=== PATIENT | female | born 1970 ===

== ENCOUNTER 2021-08-23 06:28 | Day surgery (SDC) | payer SELFPAY ==
[~2021-08-23] VITALS: Ht 152.4 cm; Wt 79.1 kg
[2021-08-23] MEDS ORDERED: PRILOTC PO (06:41)
[2021-08-23] MEDS ORDERED: LIPITOR 40MG TA40 MG PO (06:41)
[2021-08-23 06:57] VITALS: BP 115/81; PULSE 71; TEMP 98.1
--- NOTE | 2021-08-23 07:11 | NUR ---
Patient is turkmen speaking and reads and writes in turkmen. Darshana used. First interperator used was Jose, ID [id number]. Used for health history and med rec. 2nd interperator was Martha, ID [id number]. Used while starting IV and doing consent.
--- NOTE | 2021-08-23 08:20 | NUR ---
Interperator serviced used prior to procedure to talk to Dr. Johns and SÁNCHEZ De Leon. Interperator SÁNCHEZ Gracia ID: [id number].
[2021-08-23 08:40] VITALS: BP 117/73; PULSE 81; TEMP 97.5
--- NOTE | 2021-08-23 08:40 | NUR ---
PATIENT RETURNED TO ROOM 3 VIA CART. VITAL SIGNS WNL. SHE DENIES ANY PAIN OR NAUSEA. AND SON AT BEDSIDE. SHE REQUESTS ORANGE JUICE AND JELLO. WILL CONTINUE TO MONITOR.
[2021-08-23 08:55] VITALS: BP 112/72; PULSE 74
--- NOTE | 2021-08-23 08:55 | NUR ---
PATIENT IS AWAKE AND ALERT. SHE TOLERATED JELLO AND JUICE WELL. AND SON AT BEDSIDE. DOCTOR IN WITH PATIENT. WILL CONTINUE TO MONITOR.
[2021-08-23 09:05] VITALS: BP 107/62; PULSE 72
--- NOTE | 2021-08-23 09:05 | NUR ---
PATIENT IS READY FOR DISCHARGE. IV REMOVED. VITAL SIGNS WNL. DOCTOR JUST TALKED WITH PATIENT AND FAMILY. WILL DISCHARGE VIA WHEELCHAIR AFTER SHE GETS DRESSED. DISCHARGE INSTRUCTIONS REVIEWED WITH PATIENT AND FAMILY.
== END 2021-08-23 09:10 ==
LOC: SDCO 06:28
DX: K21.9 Gastro-esophageal reflux disease without esophagitis (principal); K29.50 Unspecified chronic gastritis without bleeding; K29.80 Duodenitis without bleeding; Z12.11 Encounter for screening for malignant neoplasm of colon; K62.89 Other specified diseases of anus and rectum; E66.9 Obesity, unspecified; Z68.31 Body mass index [BMI] 31.0-31.9, adult
CPT/HCPCS: J2704; J3010; J7030

== ENCOUNTER → 2021-11-19 | Outpatient (CLI) | payer SELFPAY ==
[~2021-11-19] MED LIST: LIPITOR 40MG TA40 MG PO; PRILOTC PO
== END ==
LOC: COL.RAD 07:15
DX: R14.2 Eructation (principal); R14.0 Abdominal distension (gaseous)
CPT/HCPCS: A9541

== ENCOUNTER → 2023-06-24 | Outpatient (REF) | payer OTHER | LOC: WSOH 13:34 | DX: M65.4 Radial styloid tenosynovitis [de Quervain] (principal); E87.5 Hyperkalemia; R73.03 Prediabetes; Y99.0 Civilian activity done for income or pay ==